=== PATIENT | female | born 1995 | race Caucasian/White ===

== ENCOUNTER 2018-07-30 15:06 | Outpatient (CLI) | payer MEDICAID, OTHER ==
[2018-07-30 15:47] VITALS: BP 103/63
--- NOTE | 2018-07-30 19:03 | Ultrasound Report ---
PROCEDURE: US OB BPP WO NON-STRESS TECHNIQUE: Sonographic evaluation for breathing, movement, tone, and amniotic flui d volume was performed. HISTORY: post dates COMPARISONS: None . FINDINGS: FETUS Amniotic fluid volume Normal-score 2. At least one vertical pocket >2 cm or more in vertical axis . breathing: Normal-score 2 . movement: Normal-score 2 . tone: Normal-score 2 . Score: 8 of 8 . IMPRESSION: Normal biophysical profile . This document is electronically signed by Lupe Schwarz MD., July 30 2018 07:01:17 PM ET
--- NOTE | 2018-07-30 19:04 | Ultrasound Report ---
PROCEDURE: US OB LIMITED TECHNIQUE: Real-time limited sonographic examination was performed for evaluation of amniotic fluid volume for each fetus with image documentation (1 or more fetuses). HISTORY: post dates COMPARISONS: None . FINDINGS: FETUS IUP: Single living intrauterine . Position: Cephalic . Amniotic fluid volume: Amniotic fluid index measures 8.4 cm Heart rate and rhythm: 134 BPM, Regular . anatomic survey: Not performed . IMPRESSION: Amniotic fluid index measures 8.4 cm. This document is electronically signed by Lupe Schwarz MD., July 30 2018 07:02:36 PM ET
== END 2018-07-30 17:48 | disposition home or self-care (01) ==
LOC: TRG 15:06
PROVIDERS: ATTEND Obstetrics & Gynecology
DX: O47.1 False labor at or after 37 completed weeks of gestation (principal); Z3A.40 40 weeks gestation of pregnancy
CPT/HCPCS: 59025; 76815; 76819

== ENCOUNTER 2018-08-01 08:43 | Inpatient (IN) | payer MEDICAID, OTHER ==
--- NOTE | 2018-08-01 10:58 | History and Physical Report ---
History of Present Illness Date of examination: 08/01/18 Date of admission: 08/01/18 08:43 Chief complaint: Presents for a Scheduled Postdates Induction of Labor History of present illness: Early entry to care at [facility], course c omplicated by depression, in counseling and taking Prozac and Rispendone until about 2 weeks ago (didn't get refill of medications). Feels well today. Past History Past Medical History: other (Depression) Past Surgical History: no surgical history Family/Genetic History: hypertension (mother) Social history: single - Obstetrical History Expected Date of Delivery: 07/25/18 Actual Gestation: 41 Week(s) 0 Day(s) : 2 Para: 1 Hx # Term Pregnancies: 1 Number of Living Children: 1 #1 Gender: Male year: Birthweight: 3.515 kg Method of Delivery: Vaginal Gestational age at delivery: 40 Complications: none Medications and Allergies Allergies Allergy/AdvReac Type Severity Reaction Status Date / Time No Known Allergies Allergy Verified 05/12/14 21:59 Home Medications Medication Instructions Recorded Confirmed Last Taken Type Vit-Fe Fumar-FA [ 1 tab PO QDAY 01/21/16 01/21/16 Unknown History Vitamin] Ferrous Sulfate [Feosol 325 MG tab] 325 mg PO BID #60 tablet 01/22/16 Unknown Rx Ibuprofen [Motrin 800 MG tab] 800 mg PO Q8HR PRN #30 tablet 01/22/16 Unknown Rx oxyCODONE /ACETAMINOPHEN [Percocet 1 tab PO Q6HR PRN #30 tablet 01/22/16 Unknown Rx 5/325] Review of Systems All systems: negative - Vital Signs Vital signs: Vital Signs Pulse BP 97 H 112/71 08/01/18 09:29 08/01/18 09:29 Temp Pulse Resp BP Pulse Ox 98.2 F 97 H 18 112/71 08/01/18 09:30 08/01/18 09:29 08/01/18 09:30 08/01/18 09:29 - Physical Exam Breasts: Positive: normal Cardiovascular: Regular rate Lungs: Positive: Clear to auscultation, Normal air movement Abdomen: Positive: normal appearance, soft, normal bowel sounds Genitourinary (Female): Positive: normal external genitalia, normal perenium Vagina: Positive: normal moisture Uterus: Positive: enlarged Anus/Rectum: Positive: normal perianal skin Extremities: Positive: normal - Obstetrical FHR: category 1 Uterine Contraction Monitor Mode: External Cervical Dilatation: 4 (Vtx, intact) Cervical Effacement Percentage: 60 station: -2 Uterine Contraction Pattern: Irregular Uterine Tone Measurement Phase: Resting Uterine Contraction Intensity: Mild Results All other labs normal. Assessment and Plan A: IUP @ 41 Weeks Category I Tracing GBS Negative P: Admit to L&D per Routine Orders Pitocin Induction Plans Epidural Anesthesia
[2018-08-01] MEDS ORDERED: BRETHINE IVP PRN (11:03)
[2018-08-01] MEDS ORDERED: MINERAL OIL PO PRN (11:03)
[2018-08-01] MEDS ORDERED: STADOL IV PRN (11:03)
[2018-08-01] MEDS ORDERED: XYLOCAINE 2% INFILTRATI ONE (11:03)
[2018-08-01] MEDS ORDERED: NARCAN 0.4 MG/1 ML IV PRN (11:03)
[2018-08-01] MEDS ORDERED: BRETHINE SUB-Q PRN (11:03)
[2018-08-01] MEDS ORDERED: PITOCin/NS 20 UNIT/1000ML DRIP 20 UNITS/1,000 ML BAG IV SCH (12:00)
[2018-08-01] MEDS ORDERED: LACTATED RINGERS 1,000 ML IV SCH (12:00)
[2018-08-01] MEDS ORDERED: PROzac PO SCH (12:00)
[2018-08-01] MEDS ORDERED: PITOCin/NS 30 UNIT/500ML 30 UNITS/500 ML BAG IV SCH (12:00)
[2018-08-01 12:48] LABS: Hematocrit 34.4 % (30.3-42.9); Hemoglobin 10.8 gm/dl (10.1-14.3); Mean Corpuscular HGB Conc 31 % (30-34); Mean Corpuscular Volume 77 fl (79-97); Platelet Count 145 K/mm3 (140-440); Red Blood Count 4.46 M/mm3 (3.65-5.03); Red Cell Distribution Width 17.8 % (13.2-15.2)
--- NOTE | 2018-08-01 14:30 | Progress Note ---
Assessment and Plan A: IUP @ 41 Weeks Category I Tracing GBS Negative P: AROM Continue Pitocin Augmentation Subjective - Subjective Date of service: 08/01/18 Interval history: Early entry to care at [facility], course complicated by depression, in counseling and taking Prozac and Rispendone until about 2 weeks ago (didn't get refill of medications). Feels well today. Patient reports: movement normal, contractions Objective - Vital Signs Vital Signs: Vital Signs - 12hr 08/01/18 08/01/18 08/01/18 09:29 09:30 13:40 Temperature 98.2 F Pulse Rate 97 H 92 H Respiratory 18 Rate Blood Pressure 112/71 121/77 - Exam Breasts: normal Cardiovascular: Regular rate Lungs: Clear to auscultation, Normal air movement Abdomen: Present: normal appearance, soft FHR: category 1 Uterine Contraction Monitor Mode: External Cervical Dilatation: 5 (Large amount of clear fluid upon AROM @ 1425) Cervical Effacement Percentage: 80 station: -2 Uterine Contraction Pattern: Irregular Uterine Tone Measurement Phase: Resting Uterine Contraction Intensity: Strong/Firm Extremities: normal - Labs Labs: Abnormal Labs 08/01/18 12:15 MCV 77 L MCH 24 L RDW 17.8 H Laboratory Results - last 24 hr 08/01/18 08/01/18 12:15 12:15 WBC 6.2 RBC 4.46 Hgb 10.8 Hct 34.4 MCV 77 L MCH 24 L MCHC 31 RDW 17.8 H Plt Count 145 Blood Type O POSITIVE Antibody Screen Negative
[2018-08-01] MEDS ORDERED: NARCAN 2 MG/2 ML IV PRN (17:08)
--- NOTE | 2018-08-01 17:13 | Anesthesia Consultation ---
Anesthesia Consult and Med Hx Date of service: 08/01/18 - Airway Anesthetic Teeth Evaluation: Good ROM Head & Neck: Adequate Mental/Hyoid Distance: Adequate Mallampati Class: Class II Intubation Access Assessment: Probably Good - Pulmonary Exam CTA: Yes - Cardiac Exam Cardiac Exam: RRR - Pre-Operative Health Status ASA Pre-Surgery Classification: ASA2 Proposed Anesthetic Plan: Epidural - Pulmonary Hx Smoking: No Hx Asthma: No Hx Respiratory Symptoms: No SOB: No COPD: No Home Oxygen Therapy: No Hx Pneumonia: No Hx Sleep Apnea: No - Cardiovascular System Hx Hypertension: No Hx Coronary Artery Disease: No Hx Heart Attack/AMI: No Hx Angina: No Hx Percutaneous Transluminal Coronary Angioplasty (PTCA): No Hx Cardia Arrhythmia: No Hx Pacemaker: No Hx Internal Defibrillator: No Hx Valvular Heart Disease: No Hx Heart Murmur: No Hx Peripheral Vascular Disease: No - Central Nervous System Hx Neuromuscular Disorder: No Hx Seizures: No CVA: No Hx Back Pain: No Hx Psychiatric Problems: No - Gastrointestinal Hx Ulcer: No Hx Gastroesophageal Reflux Disease: Yes - Endocrine Hx Renal Disease: No Hx End Stage Renal Disease: No Hx Cirrhosis: No Hx Liver Disease: No Hx Insulin Dependent Diabetes: No Hx Non-Insulin Dependent Diabetes: No Hx Thyroid Disease: No Hx Hypothyroidism: No Hx Hyperthyroidism: No - Hematic Hx Anemia: No Hx Sickle Cell Disease: No - Other Systems Hx Alcohol Use: No Hx Substance Use: No Hx Cancer: No Hx Obesity: No
[2018-08-01] MEDS ORDERED: fentaNYL-BUPIV 2 MCG/ML-0.125% 200 MCG/100 ML BAG EPIDURAL SCH (18:00)
[2018-08-01] MEDS ORDERED: CYTOTEC ONE (18:03)
[2018-08-01] MEDS ORDERED: CYTOTEC PR ONE (18:05)
[2018-08-01] MEDS ORDERED: PHENERGAN PO PRN (18:23)
[2018-08-01] MEDS ORDERED: BENADRYL PO PRN (18:23)
--- NOTE | 2018-08-01 18:36 | Procedure Note ---
OB Delivery Note - Delivery Date of Delivery: 08/01/18 (1755) Surgeon: ROSA MAYO Estimated blood loss: other (350) - Vaginal Delivery presentation: vertex Delivery position: OA Intrapartum events: none Delivery induction: oxytocin Delivery augmentation: rupture of membranes, pitocin Delivery monitor: external FHT, external uterine Route of delivery: Delivery placenta: spontaneous Delivery cord: 3 umbilical vessels Episiotomy: none Delivery laceration: none Anesthesia: epidural Delivery comments: of a live 9'0 male over a intact perineum under epidural anesthesia with Apgars of 7 and 9 at 1755 on 08/01/2018. directly to maternal abd/chest, skin to skin contact. Spontaneous delivery of placenta complete and intact with [place]ce[place]ion side presenting at 1800. Heavy uterine bleeding with placental delivery. 1000mcg of Cytotec placed per rectum and Vigorous external uterine massage; and uterine bleeding became scant. Fundus is firm and midline located 5 below the U. Delayed cord clamping and cutting; Cord cut by the Father of the Baby. Cord blood collected; Placenta discarded. - A at 1 minute: 7 at 5 minutes: 9 Infant Gender: Male (9'0)
[2018-08-01] MEDS ORDERED: IBUPROFEN PO SCH (19:00)
[2018-08-01] MEDS ORDERED: SODIUM CHLORIDE FLUSH SYRINGE 10 ML IV NR (19:00)
[2018-08-01] MEDS: NORCO 5/325 PO PRN (20:31)
[2018-08-01] MEDS ORDERED: LACTATED RINGERS 1,000 ML ONE (22:11)
[2018-08-01] MEDS: IBUPROFEN PO SCH (23:17)
[2018-08-02] MEDS: IBUPROFEN PO SCH ×2 (05:16→14:34)
[2018-08-02] MEDS: NORCO 5/325 PO PRN ×3 (05:16→21:01)
[2018-08-02 06:17] LABS: Hemoglobin 8.7 gm/dl (10.1-14.3)
--- NOTE | 2018-08-02 09:29 | Progress Note ---
Assessment and Plan - Patient Problems (1) (normal spontaneous vaginal delivery) Current Visit: Yes Status: Acute Plan to address problem: Continue routine PP orders Abdominal binder per pt request Anticipate d/c home in 24 hours (2) Anemia Current Visit: Yes Status: Acute Qualifiers: Anemia type: other cause Other causes of anemia: acute posthemorrhagic Qualified Code(s): D62 - Acute posthemorrhagic anemia Plan to address problem: Ferrous sulfate 325 mg po BID Subjective - Subjective Date of service: 08/02/18 Principal diagnosis: IOL Interval history: See admission H & P, OB delivery summary and PP progress note Patient reports: appetite normal, voiding normally, pain well controlled, ambulating normally, other (Request abdominal binder), no flatus, no bowel movement [place]: doing well, bottle feeding (and ) Objective - Vital Signs Latest vital signs: Vital Signs Temp Pulse Resp BP BP Pulse Ox 08/02/18 07:42 97.6 F 83 18 110/73 98 08/02/18 05:16 18 08/02/18 04:12 98.0 F 87 18 102/57 97 08/01/18 23:17 18 08/01/18 22:10 98.5 F 82 18 102/65 08/01/18 20:35 89 110/66 08/01/18 20:31 18 08/01/18 20:22 81 111/67 08/01/18 20:07 90 106/65 08/01/18 19:52 88 100/73 08/01/18 19:37 91 H 95/62 08/01/18 19:23 86 109/56 08/01/18 19:17 141 H 134/76 08/01/18 18:19 91 H 108/61 08/01/18 18:14 88 108/58 08/01/18 18:09 93 H 104/57 08/01/18 18:04 99 H 98/64 08/01/18 17:50 94 H 126/71 08/01/18 17:46 109 H 100 08/01/18 17:45 98 H 133/66 08/01/18 17:41 67 74 L 08/01/18 17:40 101 H 126/71 08/01/18 17:36 96 H 98 08/01/18 17:35 89 84 08/01/18 17:34 84 115/57 08/01/18 17:31 82 119/69 98 08/01/18 17:27 85 93 08/01/18 17:26 87 95 08/01/18 17:24 95 H 118/66 08/01/18 17:22 112 H 91 08/01/18 17:21 109 H 98 08/01/18 17:19 96 H 117/59 08/01/18 17:16 87 97 08/01/18 17:15 92 H 118/55 08/01/18 17:11 86 98 08/01/18 17:09 97 H 116/60 08/01/18 17:06 92 H 97 08/01/18 17:04 86 117/82 08/01/18 17:02 99 H 92 08/01/18 17:01 85 97 08/01/18 16:59 97 H 109/60 08/01/18 16:56 84 96 08/01/18 16:54 85 110/59 08/01/18 16:51 89 98 08/01/18 16:49 96 H 122/75 08/01/18 16:46 95 H 99 08/01/18 16:40 93 H 127/67 08/01/18 16:35 90 120/74 08/01/18 16:30 92 H 143/75 08/01/18 16:24 90 120/70 08/01/18 16:19 99 H 121/76 08/01/18 16:14 92 H 118/71 08/01/18 16:09 91 H 127/76 08/01/18 16:04 93 H 120/67 08/01/18 16:00 91 H 119/77 08/01/18 15:11 86 108/62 08/01/18 13:40 92 H 121/77 08/01/18 09:30 98.2 F 18 08/01/18 09:29 97 H 112/71 Intake and Output 08/01/18 08/02/18 08/02/18 23:59 07:59 15:59 Other: Estimated Blood Loss 350 - Exam Breasts: Present: normal Cardiovascular: Present: Regular rate Lungs: Present: Normal air movement Abdomen: Present: soft, normal bowel sounds Uterus: Present: firm, fundal height below umbilicus (U-2) Extremities: Present: normal Deep Tendon Reflex Grade: Normal +2 - Labs Labs: Abnormal lab results 08/01/18 08/02/18 Range/Units 12:15 06:03 Hgb 8.7 L (10.1-14.3) gm/dl Hct 27.0 L D (30.3-42.9) % MCV 77 L (79-97) fl MCH 24 L (28-32) pg RDW 17.8 H (13.2-15.2) %
--- NOTE | 2018-08-02 09:33 | Discharge Summary ---
Providers - Providers Date of Admission: 08/01/18 08:43 Date of discharge: 08/03/18 (1200) Attending physician: JARETT RICHARDS MD Primary care physician: JARETT RICHARDS MD Hospitalization Reason for admission: induction of labor Delivery: Episiotomy: none Laceration: none Other procedures: none complications: none Discharge diagnosis: IUP at term delivered, other (Anemia) baby: male Hospital course: See admission H & P, OB delivery summary and PP progress note Condition at discharge: Stable Disposition: DC-01 TO HOME OR SELFCARE - Discharge Diagnoses (1) (normal spontaneous vaginal delivery) Status: Acute (2) Anemia Status: Acute Qualifiers: Anemia type: other cause Other causes of anemia: acute posthemorrhagic Qualified Code(s): D62 - Acute posthemorrhagic anemia Plan - Discharge Medications Prescriptions: Ferrous Sulfate [Feosol 325 MG tab] 325 mg PO BID 30 Days #60 tablet - Provider Discharge Summary Activity: routine, no sex for 6 weeks, no heavy lifting 4 weeks, no strenuous exercise Diet: routine Instructions: routine Additional instructions: [] Smoking cessation referral if applicable(refer to patient education folder for contact #) [] Refer to [facility]'s [facility] Booklet Call your doctor immediately for: * Fever > 100.5 * Heavy vaginal bleeding ( >1 pad per hour) * Severe persistent headache * Shortness of breath * Reddened, hot, painful area to leg or breast * Drainage or odor from incision. * Continue daily iron supplementation as directed - Follow up plan Follow up: JARETT RICHARDS MD [Primary Care Provider] - 6 Weeks
[2018-08-02] MEDS: FEOSOL PO SCH (10:41)
[2018-08-03] MEDS: IBUPROFEN PO SCH ×2 (01:05→09:09)
[2018-08-03] MEDS: FEOSOL PO SCH ×2 (01:06→09:12)
[2018-08-03] MEDS: NORCO 5/325 PO PRN ×2 (03:11→09:11)
[2018-08-03 17:09] VITALS: BP 104/61
== END 2018-08-03 19:45 | disposition home or self-care (01) | DRG 806 ==
LOC: LD 08:43 → OB 21:32
PROVIDERS: ADMIT Obstetrics & Gynecology; ATTEND Obstetrics & Gynecology
PROC: 10E0XZZ Delivery of Products of Conception, External Approach (ICD-10-PCS; principal; 2018-08-01)
PROC: 3E033VJ Introduction of Other Hormone into Peripheral Vein, Percutaneous Approach (ICD-10-PCS; 2018-08-01)
PROC: 3E0R3BZ Introduction of Anesthetic Agent into Spinal Canal, Percutaneous Approach (ICD-10-PCS; 2018-08-01)
PROC: 00HU33Z Insertion of Infusion Device into Spinal Canal, Percutaneous Approach (ICD-10-PCS; 2018-08-01)
DX: O48.0 Post-term pregnancy (principal); D62 Acute posthemorrhagic anemia; Z37.0 Single live birth; O99.344 Other mental disorders complicating childbirth; F32.9 Major depressive disorder, single episode, unspecified; O99.62 Diseases of the digestive system complicating childbirth; K21.9 Gastro-esophageal reflux disease without esophagitis; O90.81 Anemia of the puerperium; Z3A.41 41 weeks gestation of pregnancy
CPT/HCPCS: 36415; 59025; 85014; 85018; 85027; 86592; 86850; 86900; 86901; 96360; 96365; G0378; J0595; J2590; J7120; Q0169